=== PATIENT | female | born 1960 | race Two or more races ===

== ENCOUNTER 2020-08-17 09:00 | Emergency (ER) | payer BC, MEDICAID ==
[~2020-08-17] VITALS: Ht 167.6 cm; Wt 86.0 kg
[2020-08-17] MEDS ORDERED: CYCL10TA7 MT (09:40)
[2020-08-17] MEDS ORDERED: KETOROLAC 60MG/2ML VIAL IM ONE (09:45)
[2020-08-17 09:58] VITALS: BP 147/50
== END 2020-08-17 09:59 | disposition home or self-care (01) ==
LOC: ER 09:00
DX: M54.5 Low back pain (principal); G89.29 Other chronic pain; I10 Essential (primary) hypertension
CPT/HCPCS: 96372; 99283; J1885

== ENCOUNTER 2020-09-11 08:04 | Emergency (ER) | payer MEDICAID ==
[~2020-09-11] VITALS: Ht 167.6 cm; Wt 86.0 kg
[~2020-09-11 08:04] MED LIST: CYCL10TA7 MT
[2020-09-11 08:09] VITALS: BP 132/78
[2020-09-11] MEDS ORDERED: KETOROLAC 60MG/2ML VIAL IM ONE (09:00)
[2020-09-11] MEDS ORDERED: CYCL10TA7 MT (09:43)
[2020-09-11] MEDS ORDERED: IBUP-2028 MT (09:43)
== END 2020-09-11 10:09 | disposition home or self-care (01) ==
LOC: ER 08:04
DX: M54.5 Low back pain (principal); G89.29 Other chronic pain; I10 Essential (primary) hypertension; M48.061 Spinal stenosis, lumbar region without neurogenic claudication; Z90.710 Acquired absence of both cervix and uterus
CPT/HCPCS: 96372; 99283; J1885